=== PATIENT | female | born 1995 | race Caucasian/White ===

== ENCOUNTER 2017-08-25 06:37 | Emergency (ER) | payer OTHER ==
[~2017-08-25] VITALS: Ht 165.1 cm; Wt 52.2 kg
[2017-08-25 07:31] LABS: HEMATOCRIT 43.4 % (37.0-47.0); MCH 28.9 pg (26.0-34.0); MCHC 32.4 g/dL (28.0-37.0); MCV 89.4 fL (80.0-100.0); RBC 4.85 mil/uL (4.20-5.00); RDW 14.3 % (10.5-14.5)
[2017-08-25 07:39] LABS: CALCIUM 9.4 mg/dL (8.5-10.1); CREATININE 0.7 mg/dL (0.6-1.0); POTASSIUM 3.7 mmol/L (3.5-5.1)
[2017-08-25 07:45] LABS: ALBUMIN 4.5 g/dL (3.4-5.0); TOTAL BILIRUBIN 0.3 mg/dL (<0.1-1.0); TOTAL PROTEIN 8.3 g/dL (6.4-8.2)
[2017-08-25 08:08] LABS: URINE BILIRUBIN NEGATIVE (Negative); URINE BLOOD NEGATIVE (Negative); URINE COLOR YELLOW; URINE GLUCOSE-RANDOM* NEGATIVE (Negative); URINE KETONES NEGATIVE (Negative); URINE LEUKOCYTES-REFLEX NEGATIVE (Negative); URINE PROTEIN (DIPSTICK) NEGATIVE (Negative); URINE SPECIFIC GRAVITY 1.025 (1.003-1.035); URINE UROBILINOGEN 0.2 E.U./dl (0.2-1.0)
[2017-08-25] MEDS ORDERED: ONDANSETRON HCL4 M2 PO (08:18)
[2017-08-25 08:29] VITALS: BP 109/67
== END 2017-08-25 18:23 | disposition home or self-care (01) ==
LOC: ER 06:37
PROVIDERS: Emergency Medicine
DX: R19.7 Diarrhea, unspecified (principal); R10.9 Unspecified abdominal pain; R11.2 Nausea with vomiting, unspecified